=== PATIENT | male | born 1975 | race Caucasian/White ===

== ENCOUNTER 2019-03-20 11:09 | Inpatient (IN) ==
[2019-03-20] MEDS ORDERED: ONDANSETRON 4 MG/2 ML VIAL IV STA (11:43)
[2019-03-20] MEDS ORDERED: MORPHINE 4 MG/1 ML VIAL IV STA (11:43)
[2019-03-20] MEDS ORDERED: SODIUM CHLORIDE 0.9% 1,000 ML IV STA (11:43)
[2019-03-20 12:18] LABS: Basophils # 0.1 10*3/uL (0.0-0.2); Basophils % 0.6 % (0.0-0.8); Eosinophils # 0.1 10*3/uL (0.0-0.87); Eosinophils % 0.8 % (0.00-10.9); Hematocrit 47.1 VOL% (42.0-52.0); Hemoglobin 15.5 GM/DL (14.0-18.0); Immature Granulocytes % 0.5 %; Immature Granulocytes Absolute 0.08 #; Lymphocytes # 1.8 10*3/uL (1.4-4.0); Lymphocytes % 11.2 % (21.2-54.2); Mean Corpuscular HGB Conc 32.9 GM/DL (32-36); Mean Corpuscular Volume 87.4 FL (87-102); Mean Platelet Volume 10.3 FL (9.6-12.0); Monocytes % 9.8 % (1.7-12.7); Neutrophils % 77.1 % (38.7-73.9); Platelet Count 243 T/CUMM (130-400); Red Blood Count 5.39 MC/CUMM (3.8-5.5); Red Cell Distribution Width 13.5 % (9.3-17.3); White Blood Count 15.6 T/CUMM (4-12)
[2019-03-20 12:40] LABS: Albumin 3.5 G/DL (3.4-5.0); Bilirubin,Total 0.6 MG/DL (0.2-1.0); Calcium 9.1 MG/DL (8.5-10.1); Total Protein 8.2 G/DL (6.4-8.3)
[2019-03-20] MEDS ORDERED: HYDROmorphone 2 MG/1 ML VIAL IV STA (14:37)
[2019-03-20] MEDS ORDERED: LEVOFLOXACIN INJ 750 MG in PREMIX 1 EACH IV STA (14:38)
[2019-03-20] MEDS ORDERED: HYDROmorphone 2 MG/1 ML VIAL ONE (14:39)
[2019-03-20] MEDS ORDERED: ONDANSETRON 4 MG/2 ML VIAL IV PRN (14:52)
[2019-03-20] MEDS ORDERED: ACETAMINOPHEN 325 MG TABLET PO PRN (14:52)
[2019-03-20] MEDS: metroNIDAZOLE INJ 500 MG in PREMIX 1 EACH IV SCH ×2 (17:45→21:22)
[2019-03-20] MEDS: SODIUM CHLORIDE 0.9% 1,000 ML IV SCH (18:55)
[2019-03-20] MEDS: HYDROmorphone 2 MG/1 ML VIAL IV PRN (20:43)
[2019-03-20] MEDS: DOCUSATE SODIUM 100 MG CAPSULE PO SCH (20:44)
[2019-03-21] MEDS: metroNIDAZOLE INJ 500 MG in PREMIX 1 EACH IV SCH ×4 (03:59→22:52)
[2019-03-21] MEDS: SODIUM CHLORIDE 0.9% 1,000 ML IV SCH ×2 (03:59→18:47)
[2019-03-21] MEDS: HYDROmorphone 2 MG/1 ML VIAL IV PRN ×5 (04:00→22:52)
[2019-03-21 04:31] LABS: Basophils # 0.1 10*3/uL (0.0-0.2); Basophils % 0.5 % (0.0-0.8); Eosinophils # 0.2 10*3/uL (0.0-0.87); Eosinophils % 1.5 % (0.00-10.9); Hematocrit 41.3 VOL% (42.0-52.0); Hemoglobin 13.2 GM/DL (14.0-18.0); Immature Granulocytes % 0.4 %; Immature Granulocytes Absolute 0.04 #; Lymphocytes # 1.3 10*3/uL (1.4-4.0); Mean Corpuscular Volume 89.4 FL (87-102); Mean Platelet Volume 10.7 FL (9.6-12.0); Monocytes % 9.2 % (1.7-12.7); Neutrophils % 76.4 % (38.7-73.9); Platelet Count 211 T/CUMM (130-400); Red Blood Count 4.62 MC/CUMM (3.8-5.5); Red Cell Distribution Width 13.5 % (9.3-17.3)
[2019-03-21] MEDS: DOCUSATE SODIUM 100 MG CAPSULE PO SCH ×2 (08:57→20:40)
[2019-03-21] MEDS: PANTOPRAZOLE 40 MG TABLET PO SCH (08:57)
[2019-03-21] MEDS: SODIUM CHLOR 0.9% KCL 20 MEQ 20 MEQ/1,000 ML BAG IV SCH ×2 (09:43→22:51)
[2019-03-21] MEDS ORDERED: LEVOFLOXACIN INJ 750 MG in PREMIX 1 EACH IV SCH (15:00)
[2019-03-21] MEDS ORDERED: METOPROLOL TARTRATE 25 MG TABLET PO SCH (21:00)
[2019-03-21] MEDS ORDERED: ROSUVASTATIN 10 MG TABLET PO SCH (21:00)
[2019-03-21] MEDS ORDERED: LOSARTAN 50 MG TABLET PO SCH (21:00)
[2019-03-21] MEDS ORDERED: PARoxetine 20 MG TABLET PO SCH (21:00)
[2019-03-22] MEDS: metroNIDAZOLE INJ 500 MG in PREMIX 1 EACH IV SCH ×2 (03:56→09:07)
[2019-03-22 07:17] LABS: Basophils # 0.1 10*3/uL (0.0-0.2); Basophils % 0.7 % (0.0-0.8); Eosinophils # 0.3 10*3/uL (0.0-0.87); Eosinophils % 3.4 % (0.00-10.9); Hematocrit 42.5 VOL% (42.0-52.0); Hemoglobin 13.7 GM/DL (14.0-18.0); Immature Granulocytes % 0.4 %; Immature Granulocytes Absolute 0.03 #; Lymphocytes # 1.2 10*3/uL (1.4-4.0); Lymphocytes % 15.8 % (21.2-54.2); Mean Corpuscular HGB Conc 32.2 GM/DL (32-36); Mean Corpuscular Volume 89.1 FL (87-102); Monocytes % 9.2 % (1.7-12.7); Neutrophils % 70.5 % (38.7-73.9); Platelet Count 237 T/CUMM (130-400); Red Blood Count 4.77 MC/CUMM (3.8-5.5); Red Cell Distribution Width 13.3 % (9.3-17.3); Risk Ratio 2.88; VLDL CHOLESTEROL 13.8 MG/DL; White Blood Count 7.4 T/CUMM (4-12)
[2019-03-22 07:25] LABS: Calcium 9.2 MG/DL (8.5-10.1); Osmolality,Calculated 281.1 MOS/KG (273-304)
[2019-03-22] MEDS: PANTOPRAZOLE 40 MG TABLET PO SCH (08:16)
[2019-03-22] MEDS: DOCUSATE SODIUM 100 MG CAPSULE PO SCH (08:17)
[2019-03-22] MEDS: SODIUM CHLOR 0.9% KCL 20 MEQ 20 MEQ/1,000 ML BAG IV SCH ×2 (09:07→10:18)
[2019-03-22 10:52] LABS: Sedimentation Rate-Westergren 44 MM/HR (0-15)
[2019-03-22] MEDS ORDERED: LEVOFLOXACIN 500 MG TABLET PO SCH (12:00)
[2019-03-22 12:20] VITALS: BP 118/73
[2019-03-22] MEDS ORDERED: metroNIDAZOLE 500 MG TABLET PO SCH (14:00)
== END 2019-03-22 13:06 | disposition home or self-care (01) | DRG 392 ==
LOC: N.ED 11:09 → N.EDINP 14:52 → N.2E 18:15
PROVIDERS: ADMIT Family Medicine; ATTEND Family Medicine